=== PATIENT | female | born 1985 | race Hispanic/Latino ===

== ENCOUNTER 2025-02-12 16:53 | Emergency (ER) | payer BC, MEDICAID ==
[~2025-02-12] VITALS: Ht 165.1 cm; Wt 136.1 kg
[2025-02-12] MEDS ORDERED: OSEL30CA PO (17:13)
--- NOTE | 2025-02-12 17:14 | ERN ---
ED Note History of Present Illness Stated Complaint: FLU SYMPTOMS Chief Complaint: Flu Symptoms Time Seen by MD: 16:59 Time Seen by Midlevel: 17:00 Dictation: 39-year-old female presents to the emergency department due to reported having a runny nose, fever, chills an occasional nonproductive cough that began 2 days ago. She states that on day 1 she had a temperature as high as 104 F. The patient states that several family members have tested positive for the flu at home. She denies having any nausea, vomiting or urinary symptoms. Upon initial evaluation, the patient presents in no acute respiratory distress. Emergency Care DRIVER COURIER: None Past Medical History Past Medical History: No Pertinent History Surgical History: Other, Surgical History Other: D & C PSYCH History: no pertinent psych hx LMP: Feb 06, 2025 RN Note Reviewed/Agreed w/PFSH: Yes Review of System Dictation Constitutional: Fever, chills ENT: Runny nose Respiratory: Nonproductive cough Initial Vital Sign VS Vital Signs Date Time Temp Pulse Resp B/P (MAP) Pulse Ox O2 Delivery O2 Flow Rate FiO2 02/12/25 16:56 98.2 78 18 127/71 96 Room Air 0 Physical Exam Dictation General: awake, alert, NAD Head/Face: Normocephalic, atraumatic Eyes: PERRL, EOMI ENT: Oral mucosa moist, bilateral nasal congestion Neck: Trachea midline, supple Cardiovascular: RRR, no edema Respiratory: Symmetrical, non-labored Abdomen: Soft, non-tender, non-distended, no guarding. Skin: Warm, dry, good turgor, no rash MS/Extremity: Pulses equal, no cyanosis, neurovascular intact, FROM Neuro: COAx4, GCS 15, steady gait, Psych: Normal behavior, mood, and affect normal ED Course ED Course Orders Procedure Category Date Status Time Covid Rna Naat LAB 02/12/25 Logged 17:02 Influenza Type A & B, LAB 02/12/25 Logged Rapid 17:02 Rapid (Group A Strep) LAB 02/12/25 Logged 17:02 Vital Signs Date Time Temp Pulse Resp B/P (MAP) Pulse Ox O2 Delivery O2 Flow Rate FiO2 02/12/25 16:56 98.2 78 18 127/71 96 Room Air 0 Medical Decision Making MDM MDM: Differential diagnosis: Viral illness, viral syndrome, influenza. Rationale: Tests considered and ordered secondary to shared decision making include: Previous outside records reviewed: Old ER visits. Risk of complication and/or morbidity or mortality of patient management: None Medications-Per medication reconciliation Need for hospitalization: Patient does not meet criteria for hospitalization. Need for emergency major/minor surgery: No There are no social concerns with this patient. Prescription drug management Prescriptions will include symptomatic care Patient's prior external medical records from other ER visits were reviewed by me as indicated. Prior testing and results from previous visits were reviewed. Prior tests were taken into account with medical decision making and resource utilization, independent historian/historians were used to obtain complete medical history. I independently interpreted the test that were performed, results were reviewed by me and considered findings on radiology if ordered. Medical management and examination interpretation discussions were had by me with other qualified healthcare professionals as indicated for the patient's care. An interest discussion was done with the patient that pointing to the fact that several of her family members tested positive for the flu then she will be treated as having the flu so therefore no need for any swabs are warranted at this given moment. The patient verbalized understanding and agrees with the treatment plan of care. DX & DISP Disposition: Discharge Departure Impression: Primary Impression: Influenza Condition: Stable Scripts Oseltamivir Phosphate (Tamiflu) 30 Mg Capsule 1 CAP PO BID for 5 Days, #10 CAP 0 Refills Prov: IVETTE LUEVANO 02/12/25 Time of Disposition: 17:11 IVETTE LUEVANO Feb 12, 2025 17:14
[2025-02-12 18:04] VITALS: BP 100/63; PULSE 60; RESP 17; TEMP 98.8; O2SAT 98
== END 2025-02-12 18:14 | disposition home or self-care (01) ==
LOC: EDH 16:53
DX: J11.1 Influenza due to unidentified influenza virus with other respiratory manifestations (principal)
CPT/HCPCS: 99283